=== PATIENT | male | born 1965 | race American Indian/Alaskan Native ===

== ENCOUNTER 2018-04-19 09:47 | Emergency (ER) | payer OTHER ==
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
[2018-04-19] MEDS ORDERED: TRIPLE ANTIBIOTIC TP ONE (13:20)
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
[2018-04-19 13:57] VITALS: BP 132/76
== END 2018-04-19 13:56 | disposition home or self-care (01) ==
LOC: ED 09:47
DX: S43.402A Unspecified sprain of left shoulder joint, initial encounter (principal); S50.812A Abrasion of left forearm, initial encounter; S60.512A Abrasion of left hand, initial encounter; V29.49XA Motorcycle driver injured in collision with other motor vehicles in traffic accident, initial encounter; Y93.89 Activity, other specified; Y99.8 Other external cause status; Y92.488 Other paved roadways as the place of occurrence of the external cause
CPT/HCPCS: A6250